=== PATIENT | male | born 1940 | race Caucasian/White ===

== ENCOUNTER → 2018-02-08 | Day surgery (SDC) | payer MEDICARE ==
[2018-02-06 15:17] LABS: BASOPHILS # (AUTO) 0.1 (0.0-0.1); BASOPHILS % 0.5 % (0.0-1.0); EOSINOPHILS # (AUTO) 0.3 (0.0-0.4); EOSINOPHILS % 2.9 % (0.0-6.0); HEMATOCRIT 46.1 % (38.2-49.6); HEMOGLOBIN 15.2 g/dL (14.0-18.0); LYMPHOCYTES # (AUTO) 3.1 (1.0-3.2); LYMPHOCYTES % 32.4 % (18.0-39.1); MEAN CORPUSCULAR HEMOGLOBIN 30.3 pg (28-32); MEAN CORPUSCULAR VOLUME 91.8 fL (81-99); MONOCYTES # (AUTO) 0.8 (0.2-0.8); MONOCYTES % 7.9 % (4.4-11.3); NEUTROPHILS # (AUTO) 5.3 (2.1-6.9); NEUTROPHILS % 55.9 % (38.7-80.0); PLATELET COUNT 220 x10e3/uL (140-360); RED BLOOD COUNT 5.02 x10e6/uL (4.3-5.7); RED CELL DISTRIBUTION WIDTH 14.9 % (11.7-14.4)
[2018-02-06 15:28] LABS: INR 1.27
[2018-02-06 15:36] LABS: ALBUMIN 3.3 g/dL (3.5-5.0); ANION GAP 14.6 mmol/L (8-16); CALCIUM 9.3 mg/dL (8.4-10.2); CHOL/HDL RATIO 4.4 (3.9-4.7); CREATININE, SERUM 1.85 mg/dL (0.72-1.25)
[2018-02-06 15:42] LABS: POTASSIUM 6.6 mmol/L (3.5-5.1)
[~2018-02-08] VITALS: Ht 195.6 cm; Wt 122.5 kg
[2018-02-08] VITALS (13 sets, daily range): BP systolic 76–141; BP diastolic 55–88
[~2018-02-08] MED LIST: ALPRAZOLAM 0.5 MG TAB ONE; AMIODARONE HCL200 MG PO; AMLODIPINE BESY10 MG PO; AMOXICILLIN250 MG PO; ATORVASTATIN CA20 MG PO; BENADRYL25 M1; BENEFIBER PO; DIPHENHYDRAMINE HCL 25 MG CAP ONE; FENTANYL CITRATE/PF 100MCG/2 ML INJ ONE; FUROSEMIDE40 MG PO; GLIPIZIDE5 MG PO; GLYBURIDE-METF1 EAC1 PO; HEPARIN SOD (PORCINE) 1000 UNIT/ML 30ML ONE; HEPARIN SOD/SOD CHLORIDE 2,000 ML ONE; IOPAMIDOL 370 MG/ML 200 ML INFUS..BTL INJ ONE; JANUVIA50 MG; KLOR-CON M2020 MEQ PO; LEVAQUIN500 MG PO; LEVOTHYROXINE25 MCG PO; LEVOTHYROXINE50 MCG PO; LIDOCAINE HCL 1% LOCAL INJ 20 ML VIAL ONE; LISINOPRIL10 MG PO; MIDAZOLAM HCL 2 MG/2 ML VIAL ONE; NITROGLYCERIN/D5W 200 MCG/ML 250 ML ONE; POTASSIUM CHLO10 ME1 PO; SODIUM CHLORIDE 0.9% 1000ML 1,000 ML ONE; SULFAMETHOXAZO1 EAC1; SYNTHROID25 MCG PO; ULORIC40 MG; VERAPAMIL HCL 2.5 MG/ML 2 ML VIAL ONE; WARFARIN SODIUM2 MG PO; WARFARIN SODIUM3 MG PO; Z.0.AMIODARONE HCL20 PO; Z.0.DIOVAN40 MG PO; Z.0.FUROSEMIDE40 MG PO; Z.0.GLYBURIDE5 MG PO; Z.0.KLOR-CON 1010 ME PO; Z.0.LIPITOR10 MG PO; Z.0.WARFARIN SODIUM3 PO; ZYRTEC10 M3 PO; [UNRECOGNIZED DRUG - OTHER] IV
--- OUTSIDE RECORDS SUMMARY | 2018-02-08 11:38 | XMS REPORT | Clinical Summary ---
Author Author [facility] Organization [facility] Address Unknown Phone Unavailable Care Team Providers Care Wind Development Director Name Role Phone Acosta Ocasio MD PCP Allergies No Known Allergies Current Medications Prescription Sig. Disp. Refills Start End Date Status Date warfarin (COUMADIN) 2 MG Take 2 mg by mouth daily. 3 12/09/19 Active tablet 18 atorvastatin (LIPITOR) 20 Take 20 mg by mouth Active MG tablet daily. Default OP ins lisinopril Take 20 mg by mouth Active (PRINIVIL,ZESTRIL) 20 mg daily. tablet levothyroxine (SYNTHROID, Take 125 mcg by mouth Active LEVOXYL) 125 mcg tablet every morning. sitaGLIPtin (JANUVIA) 50 Take 50 mg by mouth Active MG tablet daily. glipiZIDE (GLUCOTROL) 5 Take 5 mg by mouth 2 Active MG tablet (two) times a day before meals. febuxostat (ULORIC) 40 mg Take 40 mg by mouth Active tablet daily. sulfamethoxazole-trimetho Take 1 tablet by mouth 2 20 tablet 0 01/20/20 01/20/20 Discontin prim (BACTRIM DS) 800-160 (two) times a day for 10 18 18 ued mg per tablet days. cephalexin (KEFLEX) 500 Take 1 capsule (500 mg 30 capsule 0 01/20/20 01/20/20 Discontin MG capsule total) by mouth 3 (three) 18 18 ued times a day for 10 days. sulfamethoxazole-trimetho Take 1 tablet by mouth 2 20 tablet 0 01/20/20 01/30/20 prim (BACTRIM DS) 800-160 (two) times a day for 10 18 18 mg per tablet days. cephalexin (KEFLEX) 500 Take 1 capsule (500 mg 30 capsule 0 01/20/20 01/30/20 MG capsule total) by mouth 3 (three) 18 18 times a day for 10 days. 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 Procedure Pass Radiology after 02/07/2017 Family History Medical History Relation Name Comments No Known Problems Father No Known Problems Mother Relation Name Status Comments Father Mother Social History Tobacco Use Types Packs/Day Years Used Date Never Smoker Smokeless Tobacco: Never Used Alcohol Use Drinks/Week oz/Week Comments No Sex Assigned at Date Recorded Not on file Last Filed Vital Signs Vital Sign Reading Time Taken Blood Pressure 119/69 01/19/2018 1:28 PM CDT Pulse 62 01/19/2018 1:28 PM CDT Temperature - - Respiratory Rate - - Oxygen Saturation - - Inhaled Oxygen - - Concentration Weight 122 kg (270 lb) 01/19/2018 1:28 PM CDT Height 195.6 cm (6' 5") 01/19/2018 1:28 PM CDT Body Mass Index 32.02 01/19/2018 1:28 PM CDT Plan of Treatment Date Type Specialty Care Team Description 02/15/2018 Procedure Pass General Surgery Health Maintenance Due Date Last Done Comments SHINGRIX VACCINE (#1) 01/24/1992 ZOSTER VACCINE 2002 PNEUMOCOCCAL 2007 POLYSACCHARIDE VACCINE AGE 65 AND OVER PNEUMOCOCCAL-13 2007 INFLUENZA VACCINE 11/23/2017 Procedures Procedure Name Priority Date/Time Associated Diagnosis Comments MRI LOWER EXTREMITY JOINT Routine 01/14/2018 Deformity of left foot Results for this WO CONTRAST LEFT 9:18 AM CDT procedure are in the results section. XR FOOT 3+ VW LEFT Routine 01/09/2018 Left foot pain Results for this 10:26 AM CDT procedure are in the results section. after 02/07/2017 Results * MRI Lower Extremity Joint Wo Contrast Left (01/14/2018 9:18 AM) Narrative Performed At EXAMINATION:MRI LOWER EXTREMITY JOINT WO CONTRAST LEFT [facility] CLINICAL HISTORY:M21.962 Unspecified acquired deformity of left lower leg, pain TECHNIQUE: Multiplanar, multisequence MR imaging examination of the leftankle obtained. COMPARISON:X-ray left foot, 01/09/2018 IMPRESSION: LIGAMENTS:Old sprain and scarring of the anteroinferior tibiofibular ligament, with spurring at the fibular attachment. Posterior tib-fib ligament is well-maintained. 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 An atrophic remnant portion remains partially attached to the talus. The calcaneofibular ligament is not discretely visualized, with only intermediate signal throughout its this entity, and also anterior to the peroneal tendons, likely chronically torn also. Synovitis along the deep deltoid, which are not discretely visualized, likely chronically torn. Likewise chronic tearing of the spring ligament. Chronic sprain and scarring of the tibial spring. TENDONS:The retromalleolar groove is flat to slightly convex, and the peroneal tendons are shifted medially. The peroneus brevis tendon is attenuated distally, though does appear at least partially intact all the way to its insertion on the fifth metatarsal base. There is pronounced varus deformity across the talonavicular joint. Peroneus longus well-maintained. Circumferential fluid and heterogeneous signal surrounding the posterior tibial tendon, indicating moderate tenosynovitis. Low-grade partial tearing of the tendon distally, otherwise well-maintained. Fluid distending the FHL tendon sheath at the level of the master knot of Liu indicating mild tenosynovitis. FHL and FDL tendons themselves are well-maintained. Anterior tendons are well-maintained. Fusiform thickening hypointense signal of the distal Achilles tendon over a distance of 5.5 cm, indicating chronic tendinitis and scarring. Intermediate abnormal signal in the distal 2.5 cm of the Achilles extending to the insertion, indicating subacute mild tendinitis. BONE MARROW:Patchy abnormal marrow signal in the medial malleolus, distal fibula and throughout the talus likely a stress response and osteopenia. Moderate degenerative spurring at the tibiotalar joint. Prominent spur dorsally in the talar neck, with spurring of the anterior tibial plafond may indicate chronic anterior ankle impingement. Pronounced varus deformity across the talonavicular joint with uncovering of the talar head. 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 A small osteochondral lesion in the medial talar dome measuring 8 x 8 mm, with mild subchondral bone plate irregularity, sclerosis and mild edema and cystic change, though no unstable fragment. Near full-thickness loss of the overlying cartilage. SINUS TARSI:Synovitis along the cervical and stem ligaments. Degeneration of the interosseous ligament. PLANTAR FASCIA:Intact PERIARTICULAR SOFT TISSUES:Small ankle joint effusion and mild synovitis. Diffuse subcutaneous cutaneous edema most pronounced laterally. SUMMARY: 1.Chronically torn ATFL and calcaneofibular ligament. 2.Stretching of the distal peroneus brevis tendon, in association with varus deformity across the talonavicular joint, though there is no full-thickness tear. 3.Incidental and/or degenerative changes as above. [facility]-[id number] Procedure Note [facility], Radiology Results Incoming - 01/14/2018 9:42 AM CDT EXAMINATION: MRI LOWER EXTREMITY JOINT WO CONTRAST LEFT CLINICAL HISTORY: M21.962 Unspecified acquired deformity of left lower leg, pain TECHNIQUE: Multiplanar, multisequence MR imaging examination of the left ankle obtained. COMPARISON: X-ray left foot, 01/09/2018 IMPRESSION: LIGAMENTS: Old sprain and scarring of the anteroinferior tibiofibular ligament, with spurring at the fibular attachment. Posterior tib-fib ligament is well- maintained. 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 An atrophic remnant portion remains partially attached to the talus. The calcaneofibular ligament is not discretely visualized, with only intermediate signal throughout its this entity, and also anterior to the peroneal tendons, likely chronically torn also. Synovitis along the deep deltoid, which are not discretely visualized, likely chronically torn. Likewise chronic tearing of the spring ligament. Chronic sprain and scarring of the tibial spring. TENDONS: The retromalleolar groove is flat to slightly convex, and the peroneal tendons are shifted medially. The peroneus brevis tendon is attenuated distally, though does appear at least partially intact all the way to its insertion on the fifth metatarsal base. There is pronounced varus deformity across the talonavicular joint. Peroneus longus well-maintained. Circumferential fluid and heterogeneous signal surrounding the posterior tibial tendon, indicating moderate tenosynovitis. Low-grade partial tearing of the tendon distally, otherwise well-maintained. Fluid distending the FHL tendon sheath at the level of the master knot of Liu indicating mild tenosynovitis. FHL and FDL tendons themselves are well- maintained. Anterior tendons are well-maintained. Fusiform thickening hypointense signal of the distal Achilles tendon over a distance of 5.5 cm, indicating chronic tendinitis and scarring. Intermediate abnormal signal in the distal 2.5 cm of the Achilles extending to the insertion, indicating subacute mild tendinitis. BONE MARROW: Patchy abnormal marrow signal in the medial malleolus, distal fibula and throughout the talus likely a stress response and osteopenia. Moderate degenerative spurring at the tibiotalar joint. Prominent spur dorsally in the talar neck, with spurring of the anterior tibial plafond may indicate chronic anterior ankle impingement. Pronounced varus deformity across the talonavicular joint with uncovering of the talar head. 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 A small osteochondral lesion in the medial talar dome measuring 8 x 8 mm, with mild subchondral bone plate irregularity, sclerosis and mild edema and cystic change, though no unstable fragment. Near full-thickness loss of the overlying cartilage. SINUS TARSI: Synovitis along the cervical and stem ligaments. Degeneration of the interosseous ligament. PLANTAR FASCIA: Intact PERIARTICULAR SOFT TISSUES: Small ankle joint effusion and mild synovitis. Diffuse subcutaneous cutaneous edema most pronounced laterally. SUMMARY: 1. Chronically torn ATFL and calcaneofibular ligament. 2. Stretching of the distal peroneus brevis tendon, in association with varus deformity across the talonavicular joint, though there is no full-thickness tear. 3. Incidental and/or degenerative changes as above. 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 Performing Organization Address [facility] Phone Number [phone] [place] [address] after 02/07/2017 Insurance Payer Benefit Subscriber ID Type Phone Address Plan / Group HUMANA MEDICARE HUMANA xxxxxxxxx PPO MEDICARE PPO/PFFS/E [facility] [place] [place] [address]
--- NOTE | 2018-02-08 15:10 | Operative Report ---
DATE OF PROCEDURE: February 08, 2018 CARDIAC CATHETERIZATION REPORT INDICATIONS FOR THE PROCEDURE: Chest pain with positive nuclear stress test showing inferior ischemia. PREPROCEDURE ASSESSMENT: Relevant diagnostic studies, laboratory data, and clinical history were reviewed. Patient was deemed to be an appropriate candidate for moderate anesthesia. The risks, the benefits, and alternatives to moderate anesthesia were explained to the patient prior to the procedure. Informed consent was obtained for the procedure. Risks, benefits, and alternatives were explained, patient agreed to proceed. MEDICATIONS: Please see nursing notes for medications administered during the procedure including the radial cocktail that was given pre and post procedure. PROCEDURE IN DETAIL: Patient was brought to the cardiac catheterization laboratory in a fasting state. The right wrist was prepped and draped in a sterile fashion. Lidocaine 1% was used for local anesthesia. A 6-Azerbaijani slender sheath was placed in the right radial artery using modified Seldinger technique. Coronary angiography was performed using 5-Azerbaijani Sanjana catheter to engage the left coronary artery and due to patient's height, we had to use 125 cm multipurpose catheter for angiography of the right coronary artery as well as the left heart cath. No significant coronary artery disease was noted. LVEDP was 50 mm. All catheters were removed over a wire. The procedure ended without any complications. Access site was closed using a TR band. SPECIMENS REMOVED: None. IMPLANTS: None. COMPLICATIONS: None. ESTIMATED BLOOD LOSS: 20 mL. FINAL RECOMMENDATIONS 1. Continue optimal medical therapy and risk factor control. 2. Follow up in clinic with primary international trade compliance manager in 2 weeks post-procedure. Job#: [id number] VAS
== END | disposition home or self-care (01) ==
LOC: CATH LAB 11:35
PROVIDERS: ATTEND Internal Medicine Interventional Cardiology
DX: I20.8 Other forms of angina pectoris (principal); R94.39 Abnormal result of other cardiovascular function study; I48.91 Unspecified atrial fibrillation; I10 Essential (primary) hypertension; Z01.812 Encounter for preprocedural laboratory examination; Z79.01 Long term (current) use of anticoagulants
CPT/HCPCS: 36415 ×2; 80053; 80061; 82948; 85025; 85610; 93458; J1644; J2001; J2250; J7030; Q9967

== ENCOUNTER 2019-03-04 10:31 | Emergency (ER) | payer MEDICARE, OTHER ==
[~2019-03-04] VITALS: Ht 195.6 cm; Wt 122.5 kg
[~2019-03-04 10:31] MED LIST changes: -ALPRAZOLAM 0.5 MG TAB ONE; -DIPHENHYDRAMINE HCL 25 MG CAP ONE; -FENTANYL CITRATE/PF 100MCG/2 ML INJ ONE; -HEPARIN SOD (PORCINE) 1000 UNIT/ML 30ML ONE; -HEPARIN SOD/SOD CHLORIDE 2,000 ML ONE; -IOPAMIDOL 370 MG/ML 200 ML INFUS..BTL INJ ONE; -LIDOCAINE HCL 1% LOCAL INJ 20 ML VIAL ONE; -MIDAZOLAM HCL 2 MG/2 ML VIAL ONE; -NITROGLYCERIN/D5W 200 MCG/ML 250 ML ONE; -SODIUM CHLORIDE 0.9% 1000ML 1,000 ML ONE; -VERAPAMIL HCL 2.5 MG/ML 2 ML VIAL ONE
[2019-03-04] MEDS ORDERED: TRAMADOL HCL 50 MG TAB PO ONE (11:30)
--- NOTE | 2019-03-04 11:39 | Diagnostic Imaging Report ---
Left complete knee, portable. CPT CODE: 67590. INDICATION: Swelling, pain, twisting injury COMPARISON: None FINDINGS: No evidence of acute fracture or dislocation. Bilateral chondrocalcinosis. Mild degenerative changes of the patellofemoral compartment and prominence of the tibial spines. Small joint effusion. IMPRESSION: Small joint effusion and degenerative changes. No acute traumatic pathology. Signed by: Dr. Marie Orona MD on 03/04/2019 11:35 AM
[2019-03-04 13:48] VITALS: BP 128/57
== END 2019-03-04 13:49 | disposition home or self-care (01) ==
LOC: ER 10:36
DX: M25.562 Pain in left knee (principal); S83.412A Sprain of medial collateral ligament of left knee, initial encounter; X50.1XXA Overexertion from prolonged static or awkward postures, initial encounter; Y92.008 Other place in unspecified non-institutional (private) residence as the place of occurrence of the external cause; I10 Essential (primary) hypertension; E11.9 Type 2 diabetes mellitus without complications; E78.5 Hyperlipidemia, unspecified; E03.9 Hypothyroidism, unspecified
CPT/HCPCS: 99284

== ENCOUNTER 2019-03-20 14:47 | Outpatient (RCR) | payer MEDICARE | END 2019-03-24 | LOC: PT 14:47 | PROVIDERS: ATTEND Specialist | DX: M25.562 Pain in left knee (principal); M24.562 Contracture, left knee; M62.81 Muscle weakness (generalized); M25.662 Stiffness of left knee, not elsewhere classified; R26.9 Unspecified abnormalities of gait and mobility; M25.652 Stiffness of left hip, not elsewhere classified ==

== ENCOUNTER → 2020-01-01 | Outpatient (CLI) | payer MEDICARE ==
[2020-01-01 16:08] LABS: BASOPHILS # (AUTO) 0.1 (0.0-0.1); BASOPHILS % 0.7 % (0.0-1.0); EOSINOPHILS # (AUTO) 0.3 (0.0-0.4); EOSINOPHILS % 3.1 % (0.0-6.0); HEMATOCRIT 45.5 % (38.2-49.6); LYMPHOCYTES # (AUTO) 3.4 (1.0-3.2); LYMPHOCYTES % 41.6 % (18.0-39.1); MONOCYTES # (AUTO) 0.8 (0.2-0.8); MONOCYTES % 9.5 % (4.4-11.3); NEUTROPHILS # (AUTO) 3.7 (2.1-6.9); NEUTROPHILS % 44.9 % (38.7-80.0); PLATELET COUNT 213 x10e3/uL (140-360); RED BLOOD COUNT 5.17 x10e6/uL (4.3-5.7); RED CELL DISTRIBUTION WIDTH 14.9 % (11.7-14.4)
[2020-01-01 16:22] LABS: BILIRUBIN,URINE NEGATIVE (NEGATIVE); CLARITY,URINE CLEAR (CLEAR); COLOR,URINE YELLOW (YELLOW); KETONES,URINE NEGATIVE (NEGATIVE); LEUKOCYTE ESTERASE ,URINE TRACE (NEGATIVE); NITRITE,URINE NEGATIVE (NEGATIVE); PROTEIN,URINE DIPSTICK NEGATIVE (NEGATIVE); URINE UROBILINOGEN 0.2 mg/dL (0.2 - 1)
--- NOTE | 2020-01-01 16:27 | Diagnostic Imaging Report ---
EXAM: Renal Ultrasound INDICATION: ^CHRONIC KIDNEY DISEASE STAGE II COMPARISON: None TECHNIQUE: Transverse and longitudinal images of the kidneys and bladder were obtained. FINDINGS: Right Kidney: Length: 1.6 cm Appearance: Normal echogenicity. Collecting system: No hydronephrosis Stones: None Cyst/Mass: None Left Kidney: Length: 10.3 cm Appearance: Normal echogenicity. Collecting system: No hydronephrosis Stones: None Cyst/Mass: None Bladder: Bilateral ureteral jets visualized. No mass or calculi. Prevoid volume estimate of 182cc. Post void images demonstrate residual lateral volume of 127cc. Unremarkable prostate. IMPRESSION: No hydronephrosis or renal calculi. Prevoid bladder volume of 182cc and postvoid bladder volume of 127cc, demonstrating incomplete emptying. Signed by: Cristiana Herrera MD on 01/01/2020 4:24 PM
[2020-01-01 16:28] LABS: ANION GAP 16.7 mmol/L (8-16); CALCIUM 8.3 mg/dL (8.4-10.2); CREATININE, SERUM 1.2 mg/dL (0.72-1.25); MAGNESIUM 1.5 MG/DL (1.3-2.1); PHOSPHORUS 2.8 MG/DL (2.3-4.7); POTASSIUM 3.7 mmol/L (3.5-5.1)
[2020-01-01 16:42] LABS: BACTERIA,URINE FEW /HPF; WBC,URINE (MAN) 0-5 /HPF (0-5)
== END ==
LOC: US 14:38
PROVIDERS: ATTEND Internal Medicine Nephrology
DX: N18.3 Chronic kidney disease, stage 3 (moderate) (principal)
CPT/HCPCS: 36415; 76770; 76857; 80048; 81001; 83735; 84100; 84550; 85025; 87086